=== PATIENT | male | born 1960 | race Two or more races ===

== ENCOUNTER 2024-12-08 15:16 | Emergency (ER) | payer OTHER, SELFPAY ==
--- NOTE | ~2024-12-08 | XR_ITS ---
EXAMINATION: XR chest 2V DATE: 12/08/2024 15:58 INDICATION: Hypertension TECHNIQUE: PA and lateral views of the chest were obtained. COMPARISON: None FINDINGS: Symmetric subtle nipple shadows projecting along the inferior margin of the bilateral fifth ribs. No focal airspace opacities, pulmonary edema, pleural effusion or pneumothorax. The cardiomediastinal si lhouette is normal. Mild thoracic spondylosis with chronic appearing mild anterior wedging of a midth oracic vertebral body. IMPRESSION: 1. No acute cardiopulmonary disease. Reviewed, dictated and finalized at location A.
--- OUTSIDE RECORDS SUMMARY | 2024-12-08 15:19 | XMS_ITS | Continuity of Care Document ---
Author Organization [email or web address] [facility] Address [id number] [place] [address] [address] [place] [phone] Phone Care Team Providers Care Etymology Teacher Name Role Phone Juan Alberto Suarez MD, FACS Unavailable Unavailab le Allergies, Adverse Reactions, Alerts Substance Reaction Status Criticality No Known Allergies Active No Inform ation Medications Medication Instructions Dosage Effective Dates (start - stop) Status Comments TOBRAMYCIN/DEXAMET HASONESUSP 2.5ML SHAKE LIQUID AND INSTILL 1 DROP IN LEFT EYE FOUR TIMES DAILY - Active sertraline 200 mg capsule take 1 capsule by oral route every day 200 MG - Active lorazepam 1 mg tablet take 1 tablet by oral route 3 times every day as needed 1 MG - Active TOBRAMYCIN/DEXAMET HASONESUSP 2.5ML SHAKE LIQUID AND INSTILL 1 DROP IN LEFT EYE FOUR TIMES DAILY - No Longer Active Procedures Procedure Date No Charge Optomap Fundus Photos 023 No Charge Refraction Eye Exam, New Patient No Charge Optomap Fundus Photos 016 Eye Exam, New Patient Eye Exam & Treatment Office/outpatient Visit, Est Eye Exam & Treatment Eye Exam Established Pt Eye Exam & Treatment Office/outpatient Visit, Est Eye Exam Established Pt Office/outpatient Visit, Est Eye Exam Established Pt Advance Directives Directive Yes / No Effective Date File Name No Information Encounters Encounter Description Practice Location Reason(s) For Visit Diagnoses Date Provider Providers Copied on Encounter [facility], [facility] [address], [place], [place], [address], tel:[phone] SEC Van DAWSON No Information Dec-0 5 Erick Avendano. [facility] [address], [address], [place], [place], [address], . tel:[phone] [facility], [facility] [address], [place], [place], [address], tel:[phone] SEC [place] CLARY Professional No Information Jason-0 5 Erick Avendano. [facility] [address], [address], [place], [place], [address], . tel:[phone] [facility], [facility] [address], [place], [place], [address], tel:[phone] SEC Van DAWSON Cornea transplant followup (chief complaint) Age-related nuclear cataract, right eyeFailure of cornea transplant of left eye Oct-0 3 Erick Avendano. [facility] [address], [address], [place], [place], [address], [place]. tel:[phone] Referring Provider: Juan Alberto Tavares, [facility] [address], [place], [address] . tel:[phone] [facility], [facility] [address], [place], [place], [address], tel:[phone] SEC [place] Blurry vision (chief complaint) Failure of cornea transplant Jason-0 201 6 Erick Avendano. [facility] [address], [address], [place], [place], [address], . tel:[phone] Referring Provider: Juan Alberto Tavares, [facility] [address], [place], [address] . tel:[phone] [facility], [address], [place], [place], [address], [place] tel:[phone] SEC [place] Corneal Transplant 1 Erick Juan Alberto. [address], [address], [place], [place], [address], [place]. tel:[phone] Referring Provider: Juan Alberto Tavares, [address], [place], [address] . tel:[phone] Office/outpa tient Visit, [facility], [address], [place], [place], [address], [place] tel:[phone] SEC [place] No Information 1 Erick Juan Alberto. [address], [address], [place], [place], [address], [place]. tel:[phone] Referring Provider: Juan Alberto Tavares, [address], [place], [address] . tel:[phone] [facility], [address], [place], [place], [address], [place] tel:[phone] SEC [place] No Information 0 Erick Juan Alberto. [address], [address], [place], [place], [address], [place]. tel:[phone] Referring Provider: Juan Alberto Tavares, [address], [place], [address] . tel:[phone] [facility], [address], [place], [place], [address], [place] tel:[phone] SEC [place] No Information 0 Erick Avendano. [address], [address], [place], [place], [address], [place]. tel:[phone] Referring Provider: Juan Alberto Tavares, [address], [place], [address] . tel:[phone] [facility], [address], [place], [place], [address], [place] [phone] SEC [place] Cain No Information Oct-0 6-200 9 Erick Avendano. [address], [address], [place], [place], [address], [place]. tel:[phone] Referring Provider: Juan Alberto Tavares, [facility] [address], [place], [address] . tel:[phone] Office/outpa tient Visit, [facility], [address] [place] [address] [address], [place], [place], [address], [place] [phone] SEC [facility] No Information May-0 5-200 9 Krishnasamy Basil. [address], [place], [place], [facility], [place]. tel:[phone] Referring Provider: Juan Alberto Tavares, [address], [place], [address] . tel:[phone] [facility], [address] [place] [address] [address], [place], [place], [address], [place] tel:[phone] SEC [facility] No Information Apr-3 1200 8 Anaya OD [place]. [address], [place], [place], [facility], [place]. tel:[phone] Referring Provider: Juan Alberto Tavares, [facility] [address], [place], [address] . tel:[phone] Office/outpa tient Visit, [facility], [address] [place] [address] [address], [place], [place], [address], [place] tel:[phone] SEC [place] Cain No Information 200 8 Erick Avendano. [address] [facility], [address], [place], [place], [address], . tel:[phone] Referring Provider: Juan Alberto Tavares, [address] [facility] [address], [place], [address] . tel:[phone] [facility], [address] [facility] [address], [place], [place], [address], [phone] SEC [place] Cain No Information 7 Erick Avendano. [address] [facility], [address], [place], [place], [address], . tel:[phone] Family History Family Member Type Diagnosis Age At Onset No Information Payers Payer name Insurance type Covered constitution party ID Brigido corona(s) [facility] CI [id number] Social History Type Description Quantity Date Captured Comments Sex Male Smoking Status No Information Chief Complaint And Reason For Visit No Information Reason For Referral Reason For Referral No Information Plan Of Treatment Date Type Action Status Patient Education Cataracts: Care Instruc tions completed History Of Present Illness Encounter Date Complaint History Of Prese nt Illness Cornea transplant followup The 8 0 year old patient presents for evaluation of 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 Pt. states past few months feels something got loose in OS. Pt states seeing something floating in OS. Pt. states vision in OD is stable. Pt. states no ocular discomfort. Pt. is using Tobradex OS qd. Blurry vision The 54 year old male presents for a complete exam. Pt denies any problems. Pt using Tob/Dex QD OS Functional Status Date Functional Assessmen t No Information Instructions Date Instruction Additional Infor torrie Impression/Plan Impression/Plan - Di scussed dx with pt. Continue same medication regimen. ERX to [facility] [address]. Written instructions for TID use so they give him the 10ml bottle. Pt will continue using qday. Return to the office in 1 yr or sooner if pain occurs. 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 Monitor Related to Corneal Transplant - 6 Months Related to Corne al Transplant Assessments Type Assessment Date No Information Patient Care Teams Name Effective Dates (start - stop) Status Members No Information
[2024-12-08 15:22] VITALS: BP 152/100; PULSE 78; RESP 14; TEMP 36.7; O2SAT 100
[2024-12-08 15:25] VITALS: O2SAT 100
[2024-12-08 15:57] LABS: Hematocrit 44.1 % (42.0-52.0); Hemoglobin 14.4 g/dL (14.0-18.0); Immature Granulocyte Percent A 0.1 % (0-0.5); Lymphocytes Absolute Auto 1.70 K/mm3 (0.9-3.2); Mean Corpuscular HGB Conc 32.7 g/dl (32-36); Mean Corpuscular Hemoglobin 28.6 pg (26-34); Mean Corpuscular Volume 87.5 fl (80-100); Nucleated Red Blood Cells Absolute Auto 0.000 K/mm3 (0.0-0.012); Nucleated Red Blood Cells Perc 0.0 % (0.0-0.2); Platelet Count Result 309 k/mm3 (150-375); Red Blood Count 5.04 M/mm3 (4.6-6.20); White Blood Count 9.1 K/mm3 (4.5-10.0)
--- OUTSIDE RECORDS SUMMARY | 2024-12-08 16:03 | XMS_ITS | Continuity of Care Document ---
Author Organization [employer] [facility] Address [address] [place] [address] [address] [place] [phone] Phone Care Team Providers Care Registration Representative Name Role Phone Juan Alberto Suarez MD, [...] Diagnoses Date Provider Providers Copied on Encounter [facility], [facility] [employer] [facility] [address], [place], [place], [address], tel:[phone] SEC Van DAWSON No Information Dec-0 5 Erick Avendano. [facility] [address], [address], [place], [place], [address], . tel:[phone] [facility], [facility] [employer] [facility] [address], [place], [place], [address], tel:[phone] SEC [place] CLARY Professional No Information Jason-0 5 Erick Avendano. [facility] [address], [address], [place], [place], [address], . tel:[phone] [facility], [facility] [employer] [facility] [address], [place], [place], [address], tel:[phone] SEC Van DAWSON Cornea transplant followup (chief complaint) Age-related nuclear cataract, right eyeFailure of cornea transplant of left eye Oct-0 3 Erick Avendano. [facility] [address], [address], [place], [place], [address], [place]. tel:[phone] Referring Provider: Juan Alberto Tavares, [facility] [address], [place], [address] . tel:[phone] [facility], [facility] [employer] [facility] [address], [place], [place], [address], tel:[phone] SEC [place] Blurry vision (chief complaint) Failure of cornea transplant Jason-0 201 6 Erick Avendano. [facility] [address], [address], [place], [place], [address], . tel:[phone] Referring Provider: Juan Alberto Tavares, [facility] [address], [place], [address] . tel:[phone] [facility], [address], [place], [place], [address], [place] tel:[phone] SEC [place] Corneal Transplant 1 Erick Juan Alberto. [address], [address], [place], [place], [address], [place]. tel:[phone] Referring Provider: Juan Alberto Tavares, [address], [place], [address] . tel:[phone] Office/outpa tient Visit, [facility], [address], [place], [place], [address], [place] tel:[phone] SEC [place] No Information 1 Erick Juan Alberto. [address], [address], [place], [place], [address], [place]. tel:[phone] Referring Provider: Juan Alberto Tavares, [address], [place], [address] . tel:[phone] [facility], [address], [place], [place], [address], [place] tel:[phone] SEC [place] N [place] No Information 0 Erick Juan Alberto. [address], [address], [place], [place], [address], [place]. tel:[phone] Referring Provider: Juan Alberto Tavares, [address], [place], [address] . tel:[phone] [facility], [address], [place], [place], [address], [place] tel:[phone] SEC [place] No Information 0 Erick Avendano. [address], [address], [place], [place], [address], [place]. tel:[phone] Referring Provider: Juan Alberto Tavares, [address], [place], [address] . tel:[phone] [facility], [address], [place], [place], [address], [place] [phone] SEC [place] Cain No Information Oct-0 6-200 9 Erick Avendano. [address], [address], [place], [place], [address], [place]. tel:[phone] Referring Provider: Juan Alberto Tavares, [facility] [address], [place], [address] . tel:[phone] Office/outpa tient Visit, [facility], [address] [place] [address] [address], [place], [place], [address], [place] [phone] SEC [facility] No Information May-0 5-200 9 Krishnasamy Basil. [address], [place], [place], [facility], [place]. tel:[phone] Referring Provider: Juan Alberto Tavares, [address], [place], [address] . tel:[phone] [facility], [address] [place] [address] [address], [place], [place], [address], [place] tel:[phone] SEC [facility] No Information Apr-3 1200 8 Anaya OD [place]. [address], [place], [place], [facility], [place]. tel:[phone] Referring Provider: Juan Alberto Tavares, [facility] [address], [place], [address] . tel:[phone] Office/outpa tient Visit, [facility], [address] [place] [address] [address], [place], [place], [address], [place] tel:[phone] SEC [place] Cain No Information 200 8 Erick Avendano. [address] [facility], [address], [place], [place], [address], . tel:[phone] Referring Provider: Juan Alberto Tavares, [address] [facility] [address], [place], [address] . tel:[phone] [facility], [address], [place], [place], [address], [phone] SEC Osbal[place] Cain No Information 7 Erick Avendano. [address] [facility], [address], [place], [place], [address], . tel:[phone] Family History Family Member Type Diagnosis Age At Onset No Information Payers Payer name Insurance type Covered libertarian ID Brigido corona(s) [facility] CI [id number] Social History Type Description Quantity Date Captured [...] same medication regimen. ERX to [facility] on [address]. Written instructions for TID use so they give him the 10ml bottle. Pt will continue using qday. Return to the office in 1 yr or sooner if pain occurs. 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 Monitor Related to Corneal Transplant Assessments Type Assessment Date No Information Patient Care Teams Name Effective Dates (start - stop) Status Members No Information
[2024-12-08 16:08] LABS: Alanine Aminotransferase 18 U/L (6-50); Albumin Level 4.0 g/dL (3.5-5.1); Alkaline Phosphatase 64 U/L (38-126); Anion Gap 7 mmol/L (4-12); Aspartate Amino Transferase 24 U/L (17-59); Bilirubin,Total 0.5 mg/dL (0.2-1.3); Blood Urea Nitrogen 21 mg/dL (9-20); Calcium 8.9 mg/dL (8.4-10.2); Carbon Dioxide 29 mmol/L (22-30); Chloride 101 mmol/L (98-107); Estimated CRCL calculation 56 ml/min; Estimated Glomerular Filt Rate > 60; Glucose 112 mg/dL (65-110); Magnesium 2.2 mg/dL (1.6-2.3); Potassium 4.4 mmol/L (3.4-5.0); Sodium 137 mmol/L (137-145); Total Protein 7.2 g/dL (6.3-8.2)
--- NOTE | 2024-12-08 16:26 | ED_ITS ---
HPI - General Adult General Chief complaint: Recheck/Abnormal Lab/Rx Stated complaint: HTN Time Seen by Provider: 12/08/24 15:26 History of Present Illness HPI narrative: Patient is a 64-year-old male who presents ER with elevated blood pressures. He was at his PCPs office other day and his systolic blood pressure was running in the 150s. Is told to keep an eye on the blood pressure discharge home without antihypertensives. He reports he has felt more fatigued today and has had a cough. He notices blood pressure is still in the 150s to 160 systolic so he came to the ER to be evaluated. No chest pain. No exertional dyspnea. He is on no medications to treat his cold. Related Data Allergies Allergy/AdvReac Type Severity Reaction Status Date / Time No Known Allergies Allergy Unverified 09/23/16 13:48 Review of Systems 2 Review of Systems: All systems reviewed & are unremarkable except as noted in HPI and below Constitutional: Constitutional: Reports no additional constitutional complaints ENT: Reports system reviewed and no additional complaints, except as documented Cardiovascular: Cardiovascular: Reports no additional cardiovascular complaints Respiratory: Respiratory: Reports no additional respiratory complaints [facility] Family History Family History (Updated 12/28/13 @ 07:13 by DOCTOR UNKNOWN) Mother Hypertension Family history of osteoarthritis Father Family history of malignant neoplasm Social History Social History Alcohol intake: current Exam 2 Narrative: GENERAL: Well-appearing, well-nourished, and in no acute distress. HEAD: Normocephalic, atraumatic. ENT: Mucous membranes moist. CHEST: Clear to auscultation. No respiratory distress. HEART: Regular rate and rhythm. Normal peripheral pulses. ABDOMEN: Soft, nontender, nondistended. EXTREMITIES: Normal range of motion. No edema. SKIN: Warm, dry, no rash. NEURO: Alert and oriented x3. PSYCH: Normal mood and affect. Course Course Emergency Course: Patient resting comfortably. Blood pressure persistently in the 150s over 100s. Discussed charged with low-dose Norvasc and follow-up with PCP. Vital Signs Vital signs: Vital Signs Temperature 98.0 F 12/08/24 15:22 Pulse Rate 78 12/08/24 15:22 Respiratory Rate 14 12/08/24 15:22 Blood Pressure 152/100 H 12/08/24 15:22 Pulse Oximetry 100 12/08/24 15:22 Oxygen Delivery Room Air 12/08/24 15:22 Temperature 98.0 F 12/08/24 15:22 Pulse Rate 78 12/08/24 15:22 Respiratory Rate 14 12/08/24 15:22 Blood Pressure 152/100 H 12/08/24 15:22 Pulse Oximetry 100 12/08/24 15:25 Oxygen Delivery Room Air 12/08/24 15:22 Medical Decision Making Vital Signs Vital Signs: Vital Signs Temperature 98.0 F 12/08/24 15:22 Pulse Rate 78 12/08/24 15:22 Respiratory Rate 14 12/08/24 15:22 Blood Pressure 152/100 H 12/08/24 15:22 Pulse Oximetry 100 12/08/24 15:22 Oxygen Delivery Room Air 12/08/24 15:22 Temperature 98.0 F 12/08/24 15:22 Pulse Rate 78 12/08/24 15:22 Respiratory Rate 14 12/08/24 15:22 Blood Pressure 152/100 H 12/08/24 15:22 Pulse Oximetry 100 12/08/24 15:25 Oxygen Delivery Room Air 12/08/24 15:22 Lab Data 12/08/24 15:51 12/08/24 15:51 Labs: Lab Results 12/08/24 Range/Units 15:51 WBC 9.1 (4.5-10.0) K/mm3 RBC 5.04 (4.6-6.20) M/mm3 Hgb 14.4 (14.0-18.0) g/dL Hct 44.1 (42.0-52.0) % MCV 87.5 (80-100) fl MCH 28.6 (26-34) pg MCHC 32.7 (32-36) g/dl RDW 12.3 (11.5-14.5) % Plt Count 309 (150-375) k/mm3 MPV 8.6 (7.4-10.4) fl Immature Gran % (Auto) 0.1 (0-0.5) % Neut % (Auto) 74.6 H (45.5-73.1) % Lymph % (Auto) 18.8 (18.3-44.2) % Centre % (Auto) 5.2 (2.6-8.5) % Eos % (Auto) 1.1 (0-4.4) % Baso % (Auto) 0.2 (0.2-1.2) % Lymph # (Auto) 1.70 (0.9-3.2) K/mm3 Centre # (Auto) 0.5 (0.1-0.6) K/mm3 Eos # (Auto) 0.1 (0-0.3) K/mm3 Baso # (Auto) 0.0 (0.0-0.1) K/mm3 Abs Immat Gran (auto) 0.01 (0.00-0.031) K/mm3 Absolute Neuts (auto) 6.8 H (1.3-6.7) K/mm3 Absolute Nucleated RBC 0.000 (0.0-0.012) K/mm3 Nucleated RBC % 0.0 (0.0-0.2) % Sodium 137 (137-145) mmol/L Potassium 4.4 (3.4-5.0) mmol/L Chloride 101 (98-107) mmol/L Carbon Dioxide 29 (22-30) mmol/L Anion Gap 7 (4-12) mmol/L BUN 21 H (9-20) mg/dL Creatinine 1.05 (0.7-1.3) mg/dL Estim Creat Clear Calc 56 ml/min Estimated GFR > 60 (59 - ) Glucose 112 H (65-110) mg/dL Calcium 8.9 (8.4-10.2) mg/dL Magnesium 2.2 (1.6-2.3) mg/dL Total Bilirubin 0.5 (0.2-1.3) mg/dL AST 24 (17-59) U/L ALT 18 (6-50) U/L Alkaline Phosphatase 64 (38-126) U/L Total Protein 7.2 (6.3-8.2) g/dL Albumin 4.0 (3.5-5.1) g/dL Influenza A (RT-PCR) Negative (Negative) Influenza B (RT-PCR) Negative (Negative) RSV (RT-PCR) Negative (Negative) SARS-CoV-2 RNA (RT-PCR) Negative (Negative) Imaging Data Radiologist's impression: ITS Impressions Chest X-Ray 12/08/24 16:22 IMPRESSION: 1. No acute cardiopulmonary disease. Discharge Plan Discharge Clinical Impression: Hypertension Patient Disposition: Home Condition: Stable Instructions: Hypertension (ED) Additional Instructions: Your started on Norvasc. Follow-up with your primary care doctor. Take her blood pressure 2 to 3 times a day after sitting down and waiting 15 minutes. Patient Language: Citizen Of [place] Prescriptions: New amlodipine [Norvasc] 5 mg tablet 5 mg PO DAILY Qty: 14 0RF Follow-up/Referrals: Sallie,MD Pamela [Primary Care Provider] - 1 Week
[2024-12-08 16:33] LABS: Influenza A QL RT-PCR Negative (Negative); Influenza B QL RT-PCR Negative (Negative); RSV RNA, RT-PCR Negative (Negative); SARS-CoV-2 RNA PCR Negative (Negative)
[2024-12-08 17:02] VITALS: BP 144/96; PULSE 81; RESP 18; O2SAT 98
== END 2024-12-08 17:05 | disposition home or self-care (01) ==
PROVIDERS: Emergency Provider Emergency Medicine; PCP Internal Medicine
DX: I10 Essential (primary) hypertension (principal); Z20.822 Contact with and (suspected) exposure to COVID-19
CPT/HCPCS: 36415; 71046; 80053; 83735; 85025; 87637; 99283

== ENCOUNTER 2024-12-09 18:10 | Emergency (ER) | payer OTHER, SELFPAY ==
--- OUTSIDE RECORDS SUMMARY | 2024-12-09 18:12 | XMS_ITS | Continuity of Care Document ---
Author Organization [facility] [place] [address] [place] [address] utibryan yL [address] [place] [phone] Phone Care Team Providers Care Delivery Aide Name Role Phone Juan Alberto Suarez MD, [...] Diagnoses Date Provider Providers Copied on Encounter [facility], [facility] [address], [place], [place], [address], tel:[phone] SEC Van DAWSON No Information Dec-0 5 Erick Avendano. [facility] [address], [address], [place], [place], [address], . tel:[phone] [facility], [facility] [address], [place], [place], [address], tel:[phone] SEC Hunt CLARY Professional No Information Jason-0 5 Erick Avendano. [facility] [address], [address], [place], [place], [address], . tel:[phone] [facility], [facility] [address], [place], [place], [address], tel:[phone] SEC Van DAWSON Cornea transplant followup (chief complaint) Age-related nuclear cataract, right eyeFailure of cornea transplant of left eye Oct-0 3 Erick Avendano. [facility] [address], [address], [place], [place], [address], [place]. tel:[phone] Referring Provider: Juan Alberto Tavares, [facility] [address], [place], [address] . tel:[phone] [facility], [facility] [address], [place], [place], [address], tel:[phone] SEC [place] Blurry vision (chief complaint) Failure of cornea transplant Jason-0 201 6 Erick Avendano. [facility] [address], [address], [place], [place], [address], . tel:[phone] Referring Provider: Juan Alberto Tavares, [facility] [address], [place], [address] . tel:[phone] [facility], [address], [place], [place], [address], [place] tel:[phone] SEC [place] Corneal Transplant 1 Erick Juan Alberto. [address], [address], [place], [place], [address], [place]. tel:[phone] Referring Provider: Juan Alberto Tavares, [address], [place], [address] . tel:[phone] Office/outpa tient Visit, [facility], [address], [place], [place], [address], [place] tel:[phone] SEC [place] N [place] No Information 1 Erick Juan Alberto. [address], [address], [place], [place], [address], [place]. tel:[phone] Referring Provider: Juan Alberto Tavares, [address], [place], [address] . tel:[phone] [facility], [address], [place], [place], [address], [place] tel:[phone] SEC [place] N [place] No Information 0 Erick Juan Alberto. [address], [address], [place], [place], [address], [place]. tel:[phone] Referring Provider: Juan Alberto Tavares, [address], [place], [address] . tel:[phone] [facility], [address], [place], [place], [address], [place] tel:[phone] SEC [place] No Information 0 Erick Avendano. [address], [address], [place], [place], [address], [place]. tel:[phone] Referring Provider: Juan Alberto Tavares, [address], [place], [address] . tel:[phone] [facility], [address], [place], [place], [address], [place] [phone] SEC Osbaldo Cain No Information Oct-0 6-200 9 Erick Avendano. [address], [address], [place], [place], [address], [place]. tel:[phone] Referring Provider: Juan Alberto Tavares, [facility] [address], [place], [address] . tel:[phone] Office/outpa tient Visit, [facility], [address] [place] [address] [address], [place], [place], [address], [place] [phone] [facility] No Information May-0 5-200 9 Krishnasamy Basil. [address], [place], [place], [facility], [place]. tel:[phone] Referring Provider: Juan Alberto Tavares, [address], [place], [address] . tel:[phone] [facility], [address] [place] [address] [address], [place], [place], [address], [place] tel:[phone] [facility] No Information Apr-3 1200 8 Anaya OD [place]. [address], [place], [place], [facility], [place]. tel:[phone] Referring Provider: Juan Alberto Tavares, [facility] [address], [place], [address] . tel:[phone] Office/outpa tient Visit, [facility], [address] [place] [address] [address], [place], [place], [address], [place] tel:[phone] SEC Osbaldo Cain No Information 200 8 Erick Avendano. [address] [facility], [address], [place], [place], [address], . tel:[phone] Referring Provider: Juan Alberto Tavares, [address] [facility] [address], [place], [address] . tel:[phone] [facility], [address] [facility] [address], [place], [place], [address], [phone] SEC Osbaldo Cain No Information 7 Erick Avendano. [address] [facility], [address], [place], [place], [address], . tel:[phone] Family History Family Member Type Diagnosis Age At Onset No Information Payers Payer name Insurance type Covered democrat ID Brigido corona(s) [facility] CI [id number] Social History Type Description Quantity Date Captured [...] same medication regimen. ERX to [facility] on [address]. Written instructions for TID use so they [...]
[2024-12-09 18:19] VITALS: BP 158/93; PULSE 82; RESP 14; TEMP 37.2; O2SAT 99
--- NOTE | 2024-12-09 19:08 | ECG_ITS ---
Test Date: 2024-12-09 20:05:56 Measurements Intervals [place] Rate: 72 P: 0 ND: 155 QRS: 39 QRSD: 77 T: 60 QT: 395 QTc: 433 Interpretive Statements SINUS RHYTHM NORMAL ECG No previous ECG available for comparison Electronically Signed On 12-09-2024 20:29:07 CDT by Dante Dao D.O.
[2024-12-09 19:15] VITALS: BP 121/74; PULSE 80; RESP 13; O2SAT 97
--- OUTSIDE RECORDS SUMMARY | 2024-12-09 19:29 | XMS_ITS | Continuity of Care Document ---
Author Organization [facility] [place] Address [address] [place] [address] [place]ibryan [address] [place] [phone] Phone Care Team Providers Care Concrete Pourer Name Role Phone Juan Alberto Suarez MD, [...] Diagnoses Date Provider Providers Copied on Encounter [facility], [facility] [address], [place], [place], [address], tel:[phone] SEC Van DAWSON No Information Dec-0 5 Erick Avendano. [facility] [employer], [address], [place], [place], [address], . tel:[phone] [facility], [facility] [address], [place], [place], [address], tel:[phone] SEC [place] CLARY Professional No Information Jason-0 5 Erick Avendano. [facility] [employer], [address], [place], [place], [address], . tel:[phone] [facility], [facility] [address], [place], [place], [address], tel:[phone] SEC Van DAWSON Cornea transplant followup (chief complaint) Age-related nuclear cataract, right eyeFailure of cornea transplant of left eye Oct-0 3 Erick Avendano. [facility] [employer], [address], [place], [place], [address], [place]. tel:[phone] Referring Provider: Juan Alberto Tavares, [facility] [employer] [address], [place], [address] . tel:[phone] [facility], [facility] [address], [place], [place], [address], tel:[phone] SEC [place] Blurry vision (chief complaint) Failure of cornea transplant Jason-0 201 6 Erick Avendano. [facility] [employer], [address], [place], [place], [address], . tel:[phone] Referring Provider: Juan Alberto Tavares, [facility] [employer] [address], [place], [address] . tel:[phone] [facility], [address], [place], [place], [address], [place] tel:[phone] SEC [place] Corneal Transplant 1 Erick Juan Alberto. [address], [address], [place], [place], [address], [place]. tel:[phone] Referring Provider: Juan Alberto Tavares, [address], [place], [address] . tel:[phone] Office/outpa tient Visit, [facility], [address], [place], [place], [address], [place] tel:[phone] SEC Osbal[place] N [place] No Information 1 Erick Juan Alberto. [address], [address], [place], [place], [address], [place]. tel:[phone] Referring Provider: JuanA lberto Tavares, [address], [place], [address] . tel:[phone] [facility], [address], [place], [place], [address], [place] tel:[phone] SEC Osbal[place] N [place] No Information 0 Erick Juan Alberto. [address], [address], [place], [place], [address], [place]. tel:[phone] Referring Provider: Juan Alberto Tavares, [address], [place], [address] . tel:[phone] [facility], [address], [place], [place], [address], [place] tel:[phone] SEC [place] No Information 0 Erick Avendano. [address], [address], [place], [place], [address], [place]. tel:[phone] Referring Provider: Juan Alberto Tavares, [address], [place], [address] . tel:[phone] [facility], [address], [place], [place], [address], [place] [phone] SEC Osbaldo Cain No Information Oct-0 6-200 9 Erick Avendano. [address], [address], [place], [place], [address], [place]. tel:[phone] Referring Provider: Juan Alberto Tavares, [facility] [address], [place], [address] . tel:[phone] Office/outpa tient Visit, [facility], [address] [place] [address] [address], [place], [place], [address], [place] [phone] SEC [facility] No Information May-0 5-200 9 Krishnasamy Basil. [address], [place], [place], [facility], [place]. tel:[phone] Referring Provider: Juan Alberto Tavares, [address], [place], [address] . tel:[phone] [facility], [address] [place] [address] [address], [place], [place], [address], [place] tel:[phone] SEC [facility] No Information Apr-3 1200 8 Anaya OD [place]. [address], [place], [place], [facility], [place]. tel:[phone] Referring Provider: Juan Alberto Tavares, [facility] [address], [place], [address] . tel:[phone] Office/outpa tient Visit, [facility], [address] [place] [address] [address], [place], [place], [address], [place] tel:[phone] SEC Osbaldo Cain No Information 200 8 Erick Avendano. [address] [facility], [address], [place], [place], [address], . tel:[phone] Referring Provider: Juan Alberto Tavares, [address] [facility] [address], [place], [address] . tel:[phone] [facility], [address], [place], [place], [address], [phone] SEC Osbaldo Cain No Information 7 Erick Avendano. [address] [facility], [address], [place], [place], [address], . tel:[phone] Family History Family Member Type Diagnosis Age At Onset No Information Payers Payer name Insurance type Covered green party ID Brigido corona(s) [facility] CI [id number] Social History Type Description Quantity Date Captured [...] same medication regimen. ERX to [facility] on [address]. Written instructions for TID use so they [...]
[2024-12-09 19:30] VITALS: BP 131/83; PULSE 80; RESP 22; O2SAT 97
[2024-12-09 20:15] VITALS: BP 149/98; PULSE 79; RESP 23; O2SAT 97
[2024-12-09 20:16] VITALS: PULSE 82; RESP 21; O2SAT 100
--- NOTE | 2024-12-09 20:21 | ED_ITS ---
HPI - Recheck/Abnormal Lab/Rx General Chief Complaint: Recheck/Abnormal Lab/Rx Stated Complaint: abnormal HTN Time Seen by Provider: 12/09/24 19:04 History of Present Illness HPI narrative: 64-year-old male with history of hypertension presenting to the emergency department for repeat evaluation. Patient was seen in the emergency department yesterday and prescribed Norvasc 5 mg daily. He took his 1st dose of this and knows that his blood pressure was still in the 150s and he wanted to get repeat evaluation. He has not had a follow-up appoint with his PCP at. Patient has no symptoms. No interval change compared to yesterday's visit. No chest pain or shortness of breath, no syncope, no other concerns. Patient is otherwise well- appearing, ambulatory without difficulty and in not any acute distress in triage. Related Data Allergies Allergy/AdvReac Type Severity Reaction Status Date / Time No Known Allergies Allergy Verified 12/09/24 18:11 Review of Systems Review of Systems: As reviewed above in HPI [facility] Family History Family History Mother Hypertension Family history of osteoarthritis Father Family history of malignant neoplasm Social History Social History Alcohol intake: current Exam Narrative: GENERAL: [Well-appearing, well-nourished, and in no acute distress.] HEAD: [Normocephalic, atraumatic.] EYES: [PERRLA and EOMI.] ENT: Nares clear, no rhinorrhea or epistaxis. Mucous membranes moist. NECK: Supple. CHEST: [Clear to auscultation. No respiratory distress.] HEART: [Regular rate and rhythm]. No murmur heard. [Normal peripheral pulses.] ABDOMEN: [Soft, nondistended], [nontender], [No rigidity or guarding] EXTREMITIES: Normal range of motion. [No edema.] SKIN: Warm, dry, no rash. NEURO: [No focal deficits]. Alert and oriented [x3.] PSYCH: [Normal mood and affect.] Course Vital Signs Vital signs: Vital Signs Temperature 37.2 C 12/09/24 18:19 Pulse Rate 82 12/09/24 18:19 Respiratory Rate 14 12/09/24 18:19 Blood Pressure 158/93 H 12/09/24 18:19 Pulse Oximetry 99 12/09/24 18:19 Oxygen Delivery Room Air 12/09/24 18:19 Temperature 37.2 C 12/09/24 18:19 Pulse Rate 82 12/09/24 18:19 Respiratory Rate 14 12/09/24 18:19 Blood Pressure 158/93 H 12/09/24 18:19 Pulse Oximetry 99 12/09/24 18:19 Oxygen Delivery Room Air 12/09/24 18:19 MDM - Recheck/Abnormal Lab/Rx MDM Narrative Medical decision making narrative: 64-year-old male with history of hypertension presenting to the emergency department for repeat evaluation. Patient was seen in the emergency department yesterday and prescribed Norvasc 5 mg daily. He took his 1st dose of this and knows that his blood pressure was still in the 150s and he wanted to get repeat evaluation. He has not had a follow-up appoint with his PCP at. Patient has no symptoms. No interval change compared to yesterday's visit. No chest pain or shortness of breath, no syncope, no other concerns. Patient is otherwise well- appearing, ambulatory without difficulty and in not any acute distress in triage. Patient has mildly elevated blood pressure readings 158/93 but no tachycardia, tachypnea or fever. Unremarkable examination and his broad workup yesterday shows no signs of any end-organ damage. EKG was obtained today which shows no LVH or any ST segment elevations, depressions or acute inversions. I discussed a at length with the patient and the family members the mechanism of action of calcium channel blockers including Norvasc as well as side effect profiles to watch out for. We discussed onset of action of the medication taking up to weak to even work and side effects including leg swelling and headache. He needs to follow up with his primary care provider for further evaluation of his blood pressure on outpatient basis and was given return precautions. Family felt comfortable with the plan and safe for discharge home. Medical Records Attestation: I reviewed the patient's medical records. Discharge Plan Discharge Clinical Impression: Asymptomatic hypertension Patient Disposition: Home Condition: Stable Instructions: Antibiotic Form, Chronic Hypertension (ED) Additional Instructions: We started joint a new blood pressure medication yesterday including Norvasc 5 mg daily. This medication takes approximately 7 days to see therapeutic effect start taking hold. Take your blood pressure once a day at the same time every day after about 15 minutes of rest without any exertion or activity to get true accurate blood pressure readings. Follow-up with regular primary care provider regarding your workup in ER visits. No signs of any ongoing damage to any of your organs, heart or lungs on your imaging, EKG or laboratory studies. Side effects of Norvasc include headaches and leg swelling so be mindful that these can start developing if you get symptoms. Return to the ER if you start experiencing crushing chest pain, difficulty breathing, losing consciousness or any other emergent concerns. Follow-up with regular primary care provider outpatient. Patient Language: Occitan Prescriptions: No Action amlodipine [Norvasc] 5 mg tablet 5 mg PO DAILY Qty: 14 0RF Follow-up/Referrals: Sallie,MD Pamela [Primary Care Provider] - Time of Disposition: 20:21
[2024-12-09 20:44] VITALS: TEMP 37
== END 2024-12-09 20:42 | disposition home or self-care (01) ==
PROVIDERS: Emergency Provider Student in an Organized Health Care Education/Training Program; PCP Internal Medicine
DX: I10 Essential (primary) hypertension (principal)
CPT/HCPCS: 93005; 99283